=== PATIENT | male | born 1960 | race Hispanic/Latino ===

== ENCOUNTER 2024-05-16 08:35 | Outpatient (CLI) | payer OTHER ==
[2024-05-16] MEDS ORDERED: Magnevist 469MG/ML 20 ML VIAL ONE (11:00)
== END 2024-05-16 08:36 | disposition home or self-care (01) ==
LOC: CSHMRI 08:35
PROVIDERS: ATTEND Urology
DX: R97.20 Elevated prostate specific antigen [PSA] (principal)
CPT/HCPCS: 36415; 72197; 82565